=== PATIENT | male | born 1950 | race Caucasian/White ===

== ENCOUNTER → 2019-03-18 | Outpatient (CLI) | payer MEDICAID ==
[~2019-03-18] MED LIST: ALBU8.5H2 IH; ALPR.5T PO; ASP325TEC PO; ATOR40TA PO; CARV6.252 PO; CLOP75TA PO; CYCL10TA9 PO; FLAX100031 PO; GARL400T13 PO; ISN300T PO; LANS30CA PO; MULT1TAB12 PO; OMG1KC PO; PROAIR; vitamin B PO
--- NOTE | 2019-03-18 08:46 | Diagnostic Imaging Report ---
Clinical indication: Patient with cough. Exam: Chest x-ray PA and lateral views. Comparisons: None. Findings: There are slightly hyperinflated lungs, increased retrosternal clear space, and flattened hemidiaphragms which can be seen with COPD changes. There is mild airspace opacification of the right midlung field which is increased compared to the left side. There is also a small area of increased airspace involving the periphery of the left midlung field. There is curvilinear parenchymal bands in both upper lung field regions, likely representing scarring. There is no pleural effusion or pneumothorax. Pulmonary vasculature and cardiac silhouettes within normal limits. There are small spurs involving the thoracic spine. IMPRESSION: 1: There are mild increased airspace opacities in the midlung malagon bilaterally (right side more than the left). It is possible that these areas may represent infiltrates versus lung scarring. Comparison to prior x-rays would better evaluate. Follow up chest x-ray in 2 - 4 weeks is suggested to evaluate for interval resolution of this finding. 2: COPD lung changes. Dictated by: Dictated on workstation # [id number]
== END ==
LOC: RAD FS 08:12
PROVIDERS: ATTEND Family Medicine
DX: J44.9 Chronic obstructive pulmonary disease, unspecified (principal)
CPT/HCPCS: 71046

== ENCOUNTER 2019-04-05 14:07 | Outpatient (RCR) | payer MEDICAID ==
[2019-04-09] MEDS ORDERED: ALPR0.5T7 PO (13:26)
[2019-04-09] MEDS ORDERED: FLUT1BLS3 INH (13:26)
[2019-04-09] MEDS ORDERED: CYCL10TA9 PO (13:26)
[2019-04-09] MEDS ORDERED: CLOP75TA28 PO (13:26)
[2019-04-09] MEDS ORDERED: LISI10TA2 PO (13:26)
[2019-04-09] MEDS ORDERED: ASPI325T32 PO (13:26)
[2019-04-09] MEDS ORDERED: ATOR40TA70 PO (13:26)
[2019-04-09] MEDS ORDERED: NITR0.4T42 SL (13:26)
[2019-04-09] MEDS ORDERED: ALBU2.5V4 NEB (13:26)
[2019-04-09] MEDS ORDERED: CARV6.252 PO (13:26)
== END 2019-04-11 | disposition home or self-care (01) ==
LOC: PULM 14:07
PROVIDERS: ATTEND Nurse Practitioner
DX: J44.9 Chronic obstructive pulmonary disease, unspecified (principal)
CPT/HCPCS: 99211

== ENCOUNTER 2019-04-08 13:29 | Inpatient (IN) | payer MEDICAID ==
[~2019-04-08] VITALS: Ht 165.1 cm; Wt 55.9 kg
--- OUTSIDE RECORDS SUMMARY | 2019-04-08 13:35 | XMS REPORT | Continuity of Care Document ---
Author Organization Unknown Address Unknown Allergies Active Description Code Type Severity Reaction Onset Reported/Identified Relationship to Patient Clinical Status Yes No Known Drug Allergies [id number] Drug Allergy Unknown N/A 10/09/2011 Medications There is no data. Problems Date Dx Coded Attending Type Code Diagnosis Diagnosed By 03/22/2019 DAKOTA MCDANIEL, RENEA Shearer Ot J44.9 CHRONIC OBSTRUCTIVE PULMONARY DISEASE, U 03/31/2019 RENEA DUNCAN MD, Ot J44.9 CHRONIC OBSTRUCTIVE PULMONARY DISEASE, U 04/05/2019 RENEA DUNCAN MD, Ot J44.9 CHRONIC OBSTRUCTIVE PULMONARY DISEASE, U Procedures There is no data. Results Test Result Range LIPID PANEL - 02/23/19 10:30 CHOLESTEROL, TOTAL 104 mg/dL <200 HDL CHOLESTEROL 34 mg/dL >40 TRIGLYCERIDES 66 mg/dL <150 LDL-CHOLESTEROL 55 mg/dL (calc) NRG CHOL/HDLC RATIO 3.1 (calc) <5.0 NON HDL CHOLESTEROL 70 mg/dL (calc) <130 CMP - 02/23/19 10:30 GLUCOSE 106 mg/dL 65-99 UREA NITROGEN (BUN) 15 mg/dL 7-25 CREATININE 0.84 mg/dL 0.70-1.25 eGFR NON-AFR. KOSOVAN 91 mL/min/1.73m2 > OR=60 eGFR 105 mL/min/1.73m2 > OR=60 BUN/CREATININE RATIO NOT APPLICABLE (calc) 6-22 SODIUM 139 mmol/L 135-146 POTASSIUM 4.1 mmol/L 3.5-5.3 CHLORIDE 99 mmol/L 98-110 CARBON DIOXIDE 34 mmol/L 20-32 CALCIUM 9.5 mg/dL 8.6-10.3 PROTEIN, TOTAL 7.2 g/dL 6.1-8.1 ALBUMIN 4.2 g/dL 3.6-5.1 GLOBULIN 3.0 g/dL (calc) 1.9-3.7 ALBUMIN/GLOBULIN RATIO 1.4 (calc) 1.0-2.5 BILIRUBIN, TOTAL 1.1 mg/dL 0.2-1.2 ALKALINE PHOSPHATASE 91 U/L 40-115 AST 22 U/L 10-35 ALT 14 U/L 9-46 Encounters ACCT No. Visit Date/Time Discharge Status Pt. Type Provider Facility Loc./Unit Complaint [id number] 03/17/2019 13:45:00 03/17/2019 23:59:59 [facility] [id number] 02/23/2019 10:15:00 Document Registration [id number] 03/18/2019 08:12:00 03/18/2019 23:59:59 CLS Outpatient RENEA DUNCAN MD [facility] RAD FS R05 [id number] 04/08/2019 10:15:00 PEN Preadmit RENEA DUNCAN MD [facility] RAD SCREENING [id number] 04/05/2019 14:07:00 ACT Outpatient CARLEE LUCIANO APRN [facility] PULM COPD
[2019-04-08] MEDS ORDERED: NS IV 1000 ML 1,000 ML IV SCH (13:57)
[2019-04-08] MEDS ORDERED: RT-ALBUTEROL/IPRATROPIUM 3 ML (DUONEB) VIAL INH ONE (14:00)
[2019-04-08] MEDS ORDERED: cefTRIAXone FOR IV USE 1,000 MG in WATER (STERILE) FOR INJECTION 10 ML IV ONE (14:00)
[2019-04-08] MEDS ORDERED: ONDANSETRON 4 MG/2 ML (SDV) Z0FRAN IVP ONE (14:00)
[2019-04-08] MEDS ORDERED: AZITHROMYCIN INJECTION 500 MG in NS (IVPB) 250 ML IV ONE (14:00)
--- NOTE | 2019-04-08 14:02 | NUR ---
ABG drawn by GLO/JOE castro
--- NOTE | 2019-04-08 14:09 | ED Respiratory ---
General Stated Complaint: LOW O2 Source: patient, spouse Exam Limitations: no limitations History of Present Illness Date Seen by Provider: Apr 08, 2019 Time Seen by Provider: 13:49 Initial Comments Patient presents to ER by private conveyance from pulmonary rehabilitation with chief complaint of shortness of air and oxygen sats in the mid 80s on 2 L by na jimmie cannula. 2 months ago he was having progressively worsening shortness of breath COPD/emphysema and went to Dr. Duncan, quit smoking and was referred to a renderer at [facility] in [place], [place]. He started pulmonary rehabilitation this week because there was a waiting list and has just progressively been getting short of breath for the past several days with increased productive cough. No fevers chills he is having nausea without vomiting. No chest pain abdominal pain but is also having increased swelling in his feet for the past week or 2. No history of CHF but he does have peripheral vascular disease and 3 cardiac stents. He has bypass popliteal femoral grafts done by Dr. henson. He uses oxygen at 2 L at baseline but last night he said he was very constipated and having a hard time having a bowel movement and while straining became very short of breath had to turn his oxygen 5 L and rest for about an hour before he could catch his breath. He says at that time his oxygen sats were about 87-89%. He uses breathing treatments a couple times a day. He denies being particularly wheezy. He is a fairly good historian and knows his medications and says he takes them on a routine basis. This is Dr. Duncan's noticed some masses on x-ray recently has been working him up for possible lung cancer. Allergies and Home Medications Allergies Coded Allergies: No Known Drug Allergies (Unverified , 10/09/11) Home Medications Albuterol 8.5 Gm Hfa.aer.ad, 8.5 GM IH Q4H, (Reported) 2 PUFFS Alprazolam 0.5 Mg Tablet, 1 TAB PO BID, (Reported) Aspirin 325 Mg Tabec, 325 MG PO DAILY, (Reported) Atorvastatin Calcium 40 Mg Tablet, 1 EACH PO DAILY, (Reported) Carvedilol 6.25 Mg Tablet, 1 EACH PO BID, (Reported) Clopidogrel Bisulfate 75 Mg Tablet, 1 EACH PO DAILY, (Reported) Cyclobenzaprine Hcl 10 Mg Tablet, 1 EACH PO Q8HR PRN, (Reported) Flaxseed Oil 1,000 Mg Capsule, 1,000 MG PO DAILY, (Reported) Garlic 400 Mg Tablet.dr, 400 MG PO DAILY, (Reported) Isoniazid 300 Mg Tablet, 1 EACH PO DAILY, (Reported) Lansoprazole 30 Mg Capsule.dr, 30 MG PO DAILY, (Reported) Multivitamins W-Minerals 1 Each Tablet, 1 EACH PO DAILY, (Reported) [place] 3 Polyunsat Fatty Acids 1,000 Mg Cap, 1,000 MG PO DAILY, (Reported) [Proair] , PRN, (Reported) [vitamin B] , PO DAILY, (Reported) Patient Home Medication List Home Medication List Reviewed: Yes Review of Systems Review of Systems Constitutional: No chills, No diaphoresis; malaise, weakness EENTM: No ear discharge, No hearing loss Respiratory: cough; No orthopnea; phlegm, short of breath; No wheezing Cardiovascular: No chest pain; Hx of Intervention; No palpitations; vascular heart diseas Gastrointestinal: No abdominal pain; constipation; No diarrhea, No dysphagia; nausea; No vomiting Genitourinary: No discharge, No dysuria Musculoskeletal: No back pain, No joint pain Skin: No pruritus, No rash Past Becjqcq-Schjzb-Xgyzoy Hx Patient Social History Alcohol Use: Denies Use Recreational Drug Use: No Drug of Choice: Hx MJ Smoking Status: Former Smoker Type Used: Cigarettes Former Smoker, Quit: Jan 25, 2019 Physical Exam Vital Signs - First Documented 04/08/19 04/08/19 13:42 14:00 Temp 99.4 Pulse 102 Resp 20 B/P (MAP) 163/105 (124) Pulse Ox 84 O2 Delivery Nasal Cannula O2 Flow Rate 2.00 FiO2 92 Capillary Refill : Height: '" Weight: lbs. oz. kg; BMI Method: General Appearance: WD/WN, mild distress Eyes: Bilateral Eye Normal Inspection, Bilateral Eye PERRL, Bilateral Eye EOMI HEENT: PERRL/EOMI; No pharynx normal (oropharynx is very dry) Neck: full range of motion, normal inspection Respiratory: respiratory distress (mild), decreased breath sounds, accessory muscle use (mild to moderate), wheezing Cardiovascular: normal peripheral pulses, regular rate, rhythm, no JVD, no murmur, other (1+ pitting edema at the ankles) Extremities: non-tender, normal capillary refill Neurologic/Psychiatric: alert, normal mood/affect, oriented x 3 Skin: normal color, warm/dry Focused Exam Lactate Level 04/08/19 14:00: Lactic Acid Level 1.46 Lactic Acid Level Laboratory Tests Test 04/08/19 14:00 Lactic Acid Level 1.46 MMOL/L (0.50-2.00) Progress/Results/Core Measures Suspected Sepsis SIRS Temperature: Pulse: Respiratory Rate: Laboratory Tests 04/08/19 14:00: White Blood Count 11.2H Blood Pressure / Mean: 04/08/19 14:00: Lactic Acid Level 1.46 Laboratory Tests 04/08/19 14:00: Creatinine 0.69, INR Comment 1.0, Platelet Count 234, Total Bilirubin 1.2H Results/Orders Lab Results Laboratory Tests Test 04/08/19 14:00 04/08/19 14:02 Range/Units White Blood Count 11.2 H 4.3-11.0 10^3/uL Red Blood Count 4.59 4.35-5.85 10^6/uL Hemoglobin 14.8 13.3-17.7 G/DL Hematocrit 48 40-54 % Mean Corpuscular Volume 104 H 80-99 FL Mean Corpuscular Hemoglobin 32 25-34 PG Mean Corpuscular Hemoglobin Concent 31 L 32-36 G/DL Red Cell Distribution Width 14.6 H 10.0-14.5 % Platelet Count 234 130-400 10^3/uL Mean Platelet Volume 10.9 H 7.4-10.4 FL Neutrophils (%) (Auto) 76 H 42-75 % Lymphocytes (%) (Auto) 12 12-44 % Monocytes (%) (Auto) 10 0-12 % Eosinophils (%) (Auto) 1 0-10 % Basophils (%) (Auto) 1 0-10 % Neutrophils # (Auto) 8.5 H 1.8-7.8 X 10^3 Lymphocytes # (Auto) 1.4 1.0-4.0 X 10^3 Monocytes # (Auto) 1.1 H 0.0-1.0 X 10^3 Eosinophils # (Auto) 0.1 0.0-0.3 10^3/uL Basophils # (Auto) 0.1 0.0-0.1 10^3/uL Prothrombin Time 13.7 12.2-14.7 SEC INR Comment 1.0 0.8-1.4 Activated Partial Thromboplast Time 27 24-35 SEC D-Dimer 1.80 H 0.00-0.49 UG/ML Sodium Level 141 135-145 MMOL/L Potassium Level 4.6 3.6-5.0 MMOL/L Chloride Level 94 L 98-107 MMOL/L Carbon Dioxide Level 42 H 21-32 MMOL/L Anion Gap 5 5-14 MMOL/L Blood Urea Nitrogen 17 7-18 MG/DL Creatinine 0.69 0.60-1.30 MG/DL Estimat Glomerular Filtration Rate > 60 BUN/Creatinine Ratio 25 Glucose Level 158 H 70-105 MG/DL Lactic Acid Level 1.46 0.50-2.00 MMOL/L Calcium Level 9.4 8.5-10.1 MG/DL Corrected Calcium 9.8 8.5-10.1 MG/DL Total Bilirubin 1.2 H 0.1-1.0 MG/DL Aspartate Amino Transf (AST/SGOT) 24 5-34 U/L Alanine Aminotransferase (ALT/SGPT) 25 0-55 U/L Alkaline Phosphatase 91 40-136 U/L Pro-B-Type Natriuretic Peptide 4113.0 H <75.0 PG/ML Total Protein 7.6 6.4-8.2 GM/DL Albumin 3.5 3.2-4.5 GM/DL Blood Gas Puncture Site L RADIAL Blood Gas Patient Temperature 99.4 Arterial Blood pH 7.40 7.37-7.43 Arterial Blood Partial Pressure CO2 75 *H 35-45 MMHG Arterial Blood Partial Pressure O2 66 L 79-93 MMHG Arterial Blood HCO3 47 *H 23-27 MMOL/L Arterial Blood Total CO2 49.0 H 21.0-31.0 MMOL/L Arterial Blood Oxygen Saturation 93 L 94-100 % Arterial Blood Base Excess 17.9 H -2.5-2.5 MMOL/L Charles Test YES-POS Blood Gas Ventilator Setting NO Blood Gas Inspired Oxygen 3 L My Orders Orders - ANITHA JEFFREY Cbc With Automated Diff (04/08/19 13:57) Comprehensive Metabolic Panel (04/08/19 13:57) Blood Culture (04/08/19 13:57) Sputum Culture (04/08/19 13:57) Urinalysis (04/08/19 13:57) Urine Culture (04/08/19 13:57) Protime With Inr (04/08/19 13:57) Partial Thromboplastin Time (04/08/19 13:57) Ed Iv/Invasive Line Start (04/08/19 13:57) Ed Iv/Invasive Line Start (04/08/19 13:57) Vital Signs Adult Sepsis Patie Q15M (04/08/19 13:57) O2 (04/08/19 13:57) Remove Rings In Anticipation O (04/08/19 13:57) Lactic Acid Analyzer (04/08/19 13:57) Ns Iv 1000 Ml (Sodium Chloride 0.9%) (04/08/19 13:57) Ceftriaxone For Iv Use (Rocephin For I (04/08/19 14:00) Azithromycin Injection (Zithromax Inject (04/08/19 14:00) Ed Iv/Invasive Line Start (04/08/19 13:57) Probnp Fs (04/08/19 13:57) Ondansetron Injection (Zofran Injectio (04/08/19 14:00) Albuterol/Ipra Inhalation Soln (Duoneb I (04/08/19 14:00) Svn Small Volume Nebulizer (04/08/19 13:57) Fibrin Degradation Products (04/08/19 14:09) Arterial Blood Gas (04/08/19 14:15) Chest Pa/Lat (2 View) (04/08/19 14:25) Furosemide Injection (Lasix Injection) (04/08/19 15:00) Methylprednisolone Sod Succ (Solu-Medrol (04/08/19 15:00) Medications Given in ED Current Medications Medications Dose Ordered Sig/Kaycee Route Start Time Stop Time Status Last Admin Dose Admin Albuterol/ Ipratropium 3 ml ONCE ONCE INH 04/08/19 14:00 04/08/19 14:02 DC 04/08/19 14:11 3 ML Azithromycin 500 mg/Sodium Chloride 250 ml @ 250 mls/hr ONCE ONCE IV 04/08/19 14:00 04/08/19 14:59 DC 04/08/19 15:07 250 MLS/HR Ceftriaxone Sodium 1000 mg/ Sterile Water 10 ml @ 200 mls/hr ONCE ONCE IV 04/08/19 14:00 04/08/19 14:02 DC 6/27/19 15:07 200 MLS/HR Furosemide 40 mg ONCE ONCE IVP 04/08/19 15:00 04/08/19 15:01 DC 04/08/19 15:10 40 MG Methylprednisolone Sodium Succinate 125 mg ONCE ONCE IVP 04/08/19 15:00 04/08/19 15:01 DC 04/08/19 15:10 125 MG Ondansetron HCl 4 mg ONCE ONCE IVP 04/08/19 14:00 04/08/19 14:02 DC 04/08/19 14:11 4 MG Vital Signs/I&O 04/08/19 04/08/19 04/08/19 13:42 14:00 14:11 Temp 99.4 Pulse 102 Resp 20 B/P (MAP) 163/105 (124) Pulse Ox 84 93 O2 Delivery Nasal Cannula Nasal Cannula Nasal Cannula O2 Flow Rate 2.00 3.00 3.00 FiO2 92 Capillary Refill : Progress Note #1: Time: 14:06 Progress Note We have increased his oxygen to 4 L by nasal cannula to bring him up to 90-92%. We will give her a DuoNeb and obtain a 2 view chest x-ray if he can tolerate it. Septic workup. He meets Sirs criteria with a heart rate in the 90s and respiratory rate around 30. It's possible he has a postobstructive pneumonia but is also possible he has a pulmonary embolism given his recent sedentary nature due to breathlessness and possible history of malignancy. No evidence of DVT. With his swelling of his feet he could also be having an acute exacerbation of heart failure so we will cautiously give a liter fluids and check a BNP, d-dimer and if positive we will get a CT angiogram. He was post to have a CT scan of his chest today to evaluate the findings on x-ray however the CT scanner was broken so radiology called and rescheduled with him. Progress Note #2: Time: 14:37 Progress Note After the DuoNeb the patient now is breathing 96-99% on 4 L per nasal cannula. He feels a little better. Wheezes are no longer auscultated. White cell count is not markedly elevated. COPD certainly seems to be a large component of this but there still could be a pneumonia. Progress Note #3: Time: 15:58 Progress Note The patient's not having any chest pain at any point and his breathing significantly improved with a DuoNeb so this would make a pulmonary embolism far less likely. Her going to pursue this and use steroids and Lasix. Diagnostic Imaging Diagonstic Imaging: Xray Plain Films/CT/US/NM/MRI: chest (2 view) Comments NAME: [facility] REC#: [id number] PT STATUS: REG ER : 1950 PHYSICIAN: ANITHA JEFFREY MD ADMIT DATE: 04/08/19/ER FS Draft Date of Exam:04/08/19 CHEST PA/LAT (2 VIEW) INDICATION: Low oxygen saturation. TIME OF EXAM: 2:23 p.m. COMPARISON: Correlation is made with prior study of 03/18/2019. FINDINGS: Heart size is stable. Linear parenchymal density in the right suprahilar region appears stable and may represent scarring. Minimal patchy airspace disease in the right midlung is unchanged. Left lung is stable and appears to be essentially clear. The lungs are hyperinflated. There is no effusion. No pneumothorax is seen. IMPRESSION: Overall, similar appearance of the chest when compared with examination from 03/18/2019. Dictated on workstation # [id number] Dict: 04/08/19 1452 Trans: 04/08/19 1502 [id number] Interpreted by: AALIYAH TENA MD Electronically signed by: Reviewed: Reviewed by Me Departure Communication (Admissions) Time/Spoke to Admitting Phy: 15:45 Discussed the case lab imaging EKG with Dr. Ren she agrees to admit the patient on steroids and Lasix. Impression Primary Impression: Acute exacerbation of CHF (congestive heart failure) Qualified Codes: I50.9 - Heart failure, unspecified Additional Impression: COPD with exacerbation Disposition: ADMITTED INPATIENT Condition: Stable Admissions Decision to Admit Reason: Admit from ER (General) Decision to Admit/Date: Apr 08, 2019 Time/Decision to Admit Time: 15:30 Departure-Patient Inst. Referrals: RENEA DUNCAN MD (PCP/Family) Primary Care Physician ANITHA JEFFREY Apr 08, 2019 14:09
[2019-04-08 14:21] LABS: HEMATOCRIT 48 % (40-54); HEMOGLOBIN 14.8 G/DL (13.3-17.7); MEAN CORPUSCULAR HEMOGLOBIN 32 PG (25-34); MEAN CORPUSCULAR HGB CONC 31 G/DL (32-36); MEAN CORPUSCULAR VOLUME 104 FL (80-99); RED CELL DISTRIBUTION WIDTH 14.6 % (10.0-14.5); WHITE BLOOD COUNT 11.2 10^3/uL (4.3-11.0)
[2019-04-08 14:22] LABS: BASOPHILS # (AUTO) 0.1 10^3/uL (0.0-0.1); BASOPHILS % (AUTO) 1 % (0-10); EOSINOPHILS # (AUTO) 0.1 10^3/uL (0.0-0.3); EOSINOPHILS % (AUTO) 1 % (0-10); LYMPHOCYTES # (AUTO) 1.4 X 10^3 (1.0-4.0); LYMPHOCYTES % (AUTO) 12 % (12-44); MEAN PLATELET VOLUME 10.9 FL (7.4-10.4); MONOCYTES # (AUTO) 1.1 X 10^3 (0.0-1.0); MONOCYTES % (AUTO) 10 % (0-12); NEUTROPHILS # (AUTO) 8.5 X 10^3 (1.8-7.8); NEUTROPHILS % (AUTO) 76 % (42-75); PLATELET COUNT 234 10^3/uL (130-400)
[2019-04-08 14:43] LABS: BILIRUBIN,TOTAL 1.2 MG/DL (0.1-1.0); BUN/CREATININE RATIO 25; CALCIUM 9.4 MG/DL (8.5-10.1); CARBON DIOXIDE 42 MMOL/L (21-32); CHLORIDE 94 MMOL/L (98-107); CREATININE SERUM 0.69 MG/DL (0.60-1.30); GFR ESTIMATED > 60; GLUCOSE 158 MG/DL (70-105); POTASSIUM 4.6 MMOL/L (3.6-5.0); SODIUM 141 MMOL/L (135-145)
[2019-04-08 14:44] LABS: ALANINE AMINOTRANSFERASE 25 U/L (0-55); ALBUMIN 3.5 GM/DL (3.2-4.5); ALKALINE PHOSPHATASE 91 U/L (40-136); TOTAL PROTEIN 7.6 GM/DL (6.4-8.2)
[2019-04-08 14:48] LABS: ABG BASE EXCESS 17.9 MMOL/L (-2.5-2.5); ABG OXYGEN SATURATION 93 % (94-100); ALLENS TEST YES-POS
[2019-04-08 14:49] LABS: INSPIRED O2 3 L; PATIENT TEMP 99.4; VENTILATOR NO
[2019-04-08 14:51] LABS: ABG PCO2 75 MMHG (35-45)
[2019-04-08 14:52] LABS: ABG PO2 66 MMHG (79-93)
[2019-04-08] MEDS ORDERED: methylPREDNISolone 125 MG (Solu-MEDROL) VIAL IVP ONE (15:00)
[2019-04-08] MEDS ORDERED: FUROSEMIDE 40 MG/4 ML INJ (LASIX) IVP ONE (15:00)
--- NOTE | 2019-04-08 15:02 | Diagnostic Imaging Report ---
INDICATION: Low oxygen saturation. TIME OF EXAM: 2:23 p.m. COMPARISON: Correlation is made with prior study of 03/18/2019. FINDINGS: Heart size is stable. Linear parenchymal density in the right suprahilar region appears stable and may represent scarring. Minimal patchy airspace disease in the right midlung is unchanged. Left lung is stable and appears to be essentially clear. The lungs are hyperinflated. There is no effusion. No pneumothorax is seen. IMPRESSION: Overall, similar appearance of the chest when compared with examination from 03/18/2019. Dictated by: Dictated on workstation # [id number]
--- NOTE | 2019-04-08 15:39 | NUR ---
Notified from [facility] of room is not clean and will need to be delay transfer.
[2019-04-08 15:45] LABS: PROTHROMBIN TIME PATIENT 13.7 SEC (12.2-14.7)
[2019-04-08 15:46] LABS: FIBRIN DEGRADATION PRODUCTS 1.8 UG/ML (0.00-0.49)
[2019-04-08] MEDS ORDERED: ACETAMINOPHEN 500 MG TAB (TYLENOL) PO ONE (16:15)
[2019-04-08] MEDS ORDERED: CYCLOBENZAPRINE 10 MG (FLEXERIL) TAB PO ONE (16:15)
--- NOTE | 2019-04-08 16:17 | NUR ---
Pt report called to Janine DIAZ. Was reported that rooms are not ready on 4th floor and are stat clean in process. They will want to call us when room ready.
[2019-04-08 16:20] LABS: BILIRUBIN,URINE NEGATIVE (NEGATIVE); CLARITY,URINE CLEAR; COLOR,URINE DARK YELLOW; GLUCOSE, URINE (UA) NEGATIVE (NEGATIVE); KETONES,URINE NEGATIVE (NEGATIVE); LEUKOCYTE ESTERASE ,URINE NEGATIVE (NEGATIVE); NITRITE,URINE NEGATIVE (NEGATIVE); PROTEIN,URINE 2+ (NEGATIVE)
--- NOTE | 2019-04-08 16:23 | NUR ---
REPORT TAKEN JOE PRINGLE FROM ED AT THIS TIME.
[2019-04-08 16:25] LABS: BACTERIA,URINE NEGATIVE /HPF
[2019-04-08 16:26] LABS: SQUAMOUS EPITHELIAL CELL,UR 0-2 /HPF
--- NOTE | 2019-04-08 16:33 | NUR ---
Call to [facility] Dispatch to request transfer to [place] [facility]. Report of last EMS transport not back into [facility].
--- NOTE | 2019-04-08 16:35 | NUR ---
Lolly DIAZ called to [facility] to ask about room readiness/delay.
--- NOTE | 2019-04-08 16:55 | NUR ---
Pt departing to [facility] to ED Rm [id number], pt stable. See transfer form.
--- OUTSIDE RECORDS SUMMARY | 2019-04-08 17:41 | XMS REPORT | Continuity of Care Document ---
Author Organization Unknown Address Unknown Allergies Active Description Code Type Severity Reaction Onset Reported/Identified Relationship to Patient Clinical Status Yes No Known Drug Allergies [id number] Drug Allergy Unknown N/A 10/09/2011 Medications There [...] 7-25 CREATININE 0.84 mg/dL 0.70-1.25 eGFR NON-AFR. CITIZEN OF [place] 91 mL/min/1.73m2 > OR=60 eGFR 105 mL/min/1.73m2 [...] 22 U/L 10-35 ALT 14 U/L 9-46 Complete blood count (CBC) with automated white blood cell (WBC) differential - 04/08/19 14:00 Blood leukocytes automated count (number/volume) 11.2 10*3/uL 4.3-11.0 Blood erythrocytes automated count (number/volume) 4.59 10*6/uL 4.35-5.85 Venous blood hemoglobin measurement (mass/volume) 14.8 g/dL 13.3-17.7 Blood hematocrit (volume fraction) 48 % 40-54 Automated erythrocyte mean corpuscular volume 104 [foz_us] 80-99 Automated erythrocyte mean corpuscular hemoglobin (mass per erythrocyte) 32 pg 25-34 Automated erythrocyte mean corpuscular hemoglobin concentration measurement (mass/volume) 31 g/dL 32-36 Automated erythrocyte distribution width ratio 14.6 % 10.0- 14.5 Automated blood platelet count (count/volume) 234 10*3/uL 130-400 Automated blood platelet mean volume measurement 10.9 [foz_us] 7.4-10.4 Automated blood neutrophils/100 leukocytes 76 % 42-75 Automated blood lymphocytes/100 leukocytes 12 % 12-44 Blood monocytes/100 leukocytes 10 % 0-12 Automated blood eosinophils/100 leukocytes 1 % 0-10 Automated blood basophils/100 leukocytes 1 % 0-10 Blood neutrophils automated count (number/volume) 8.5 10*3 1.8-7.8 Blood lymphocytes automated count (number/volume) 1.4 10*3 1.0-4.0 Blood monocytes automated count (number/volume) 1.1 10*3 0.0- 1.0 Automated eosinophil count 0.1 10*3/uL 0.0-0.3 Automated blood basophil count (count/volume) 0.1 10*3/uL 0.0-0.1 Blood lactic acid measurement (moles/volume) - 04/08/19 14:00 Blood lactic acid measurement (moles/volume) 1.46 mmol/L 0.50- 2.00 Comprehensive metabolic panel - 04/08/19 14:00 Serum or plasma sodium measurement (moles/volume) 141 mmol/L 135-145 Serum or plasma potassium measurement (moles/volume) 4.6 mmol/L 3.6-5.0 Serum or plasma chloride measurement (moles/volume) 94 mmol/L 98-107 Carbon dioxide 42 mmol/L 21-32 Serum or plasma anion gap determination (moles/volume) 5 mmol/L 5-14 Serum or plasma urea nitrogen measurement (mass/volume) 17 mg/dL 7-18 Serum or plasma creatinine measurement (mass/volume) 0.69 mg/dL 0.60-1.30 Serum or plasma urea nitrogen/creatinine mass ratio 25 NRG Serum or plasma creatinine measurement with calculation of estimated glomerular filtration rate > NRG Serum or plasma glucose measurement (mass/volume) 158 mg/dL 70-105 Serum or plasma calcium measurement (mass/volume) 9.4 mg/dL 8.5-10.1 Serum or plasma total bilirubin measurement (mass/volume) 1.2 mg/dL 0.1-1.0 Serum or plasma alkaline phosphatase measurement (enzymatic activity/volume) 91 U/L 40-136 Serum or plasma aspartate aminotransferase measurement (enzymatic activity/volume) 24 U/L 5-34 Serum or plasma alanine aminotransferase measurement (enzymatic activity/volume) 25 U/L 0-55 Serum or plasma protein measurement (mass/volume) 7.6 g/dL 6.4-8.2 Serum or plasma albumin measurement (mass/volume) 3.5 g/dL 3.2-4.5 CALCIUM CORRECTED 9.8 mg/dL 8.5-10.1 PROBNP FS - 04/08/19 14:00 PROBNP FS 4113.0 pg/mL <75.0 PT panel in platelet poor plasma by coagulation assay - 04/08/19 14:00 Prothrombin time (PT) in platelet poor plasma by coagulation assay 13.7 s 12.2-14.7 INR in platelet poor plasma or blood by coagulation assay 1.0 0.8-1.4 Activated partial thromboplastin time (aPTT) in platelet poor plasma bycoagulation assay - 04/08/19 14:00 Activated partial thromboplastin time (aPTT) in platelet poor plasma bycoagulation assay 27 s 24-35 Fibrin D-dimer FEU measurement in platelet poor plasma (mass/volume) - 04/08/19 14:00 Fibrin D-dimer FEU measurement in platelet poor plasma (mass/volume) 1.80 ug/mL 0.00-0.49 Arterial blood gas measurement - 04/08/19 14:02 Blood pCO2 75 mm[Hg] 35-45 Blood pO2 66 mm[Hg] 79-93 Arterial blood bicarbonate measurement (moles/volume) 47 mmol/L 23-27 Arterial blood base excess by calculation 17.9 mmol/L -2.5-2.5 Arterial blood oxygen saturation measurement 93 % 94-100 * Inhaled oxygen flow rate 3 L NRG Arterial blood pH measurement with patient temperature correction 7.40 7.37-7.43 Arterial blood carbon dioxide, total measurement (moles/volume) 49.0 mmol/L 21.0-31.0 Body site L RADIAL NRG Assessment of wrist artery patency prior to arterial puncture YES-POS NRG Setting of ventilation mode NO NRG Measurement of body temperature 99.4 NRG Complete urinalysis with reflex to culture - 04/08/19 16:06 Urine color determination DARK YELLOW NRG Urine clarity determination CLEAR NRG Urine pH measurement by test strip 6.0 5-9 Specific gravity of urine by test strip >= 1.016-1.022 Urine protein assay by test strip, semi-quantitative 2+ NEGATIVE Urine glucose detection by automated test strip NEGATIVE NEGATIVE Erythrocytes detection in urine sediment by light microscopy TRACE NEGATIVE Urine ketones detection by automated test strip NEGATIVE NEGATIVE Urine nitrite detection by test strip NEGATIVE NEGATIVE Urine total bilirubin detection by test strip NEGATIVE NEGATIVE Urine urobilinogen measurement by automated test strip (mass/volume) 2.0 mg/dL NORMAL Urine leukocyte esterase detection by dipstick NEGATIVE NEGATIVE Automated urine sediment erythrocyte count by microscopy (number/high power field) [HPF] NRG Automated urine sediment leukocyte count by microscopy (number/high power field) [HPF] NRG Bacteria detection in urine sediment by light microscopy NEGATIVE NRG Squamous epithelial cells detection in urine sediment by light microscopy 0-2 NRG Crystals detection in urine sediment by light microscopy NONE NRG Casts detection in urine sediment by light microscopy PRESENT NRG Mucus detection in urine sediment by light microscopy LARGE NRG Complete urinalysis with reflex to culture CULTURE PENDING NRG Hyaline casts detection in urine sediment by light microscopy 10-25 NRG Encounters ACCT No. Visit Date/Time Discharge Status Pt. Type Provider Facility Loc./Unit Complaint [id number] 03/17/2019 13:45:00 03/17/2019 23:59:59 [facility] [id number] 02/23/2019 10:15:00 Document Registration [id number] 03/18/2019 08:12:00 03/18/2019 23:59:59 CLS Outpatient RENEA DUNCAN MD [facility] RAD FS R05 [id number] 04/08/2019 14:23:00 Document Registration [id number] 04/08/2019 10:15:00 PEN Preadmit RENEA DUNCAN MD [facility] RAD SCREENING [id number] 04/05/2019 14:07:00 ACT Outpatient CARLEE LUCIANO APRN [facility] PULM COPD
[2019-04-08 17:53] VITALS: BP 93/75
[2019-04-08] MEDS ORDERED: CATHETER FLUSH 10 ML SYR IV PRN (18:15)
[2019-04-08] MEDS ORDERED: CYCLOBENZAPRINE 10 MG (FLEXERIL) TAB PO PRN (18:15)
[2019-04-08] MEDS ORDERED: FUROSEMIDE 40 MG/4 ML INJ (LASIX) IV SCH (18:30)
[2019-04-08 19:40] VITALS: BP 101/70
[2019-04-08] MEDS: RT-ALBUTEROL/IPRATROPIUM 3 ML (DUONEB) VIAL INH SCH (20:00)
[2019-04-08] MEDS: FUROSEMIDE 40 MG/4 ML INJ (LASIX) IV SCH (20:13)
[2019-04-08] MEDS: CATHETER FLUSH 10 ML SYR IV SCH (20:13)
[2019-04-08] MEDS: ATORVASTATIN 40 MG (LIPITOR) TABLET PO SCH (20:13)
[2019-04-08] MEDS: CARVEDILOL 6.25 MG (COREG) TAB PO SCH (20:13)
[2019-04-08] MEDS ORDERED: RT-ALBUTEROL/IPRATROPIUM 3 ML (DUONEB) VIAL INH PRN (20:15)
[2019-04-09] VITALS (7 sets, daily range): BP systolic 93–132; BP diastolic 72–89
[2019-04-09] MEDS: RT-ALBUTEROL/IPRATROPIUM 3 ML (DUONEB) VIAL INH SCH ×7 (00:28→22:24)
[2019-04-09] MEDS: predniSONE 20 MG TAB PO SCH (06:01)
[2019-04-09] MEDS: FUROSEMIDE 40 MG/4 ML INJ (LASIX) IV SCH (06:01)
[2019-04-09] MEDS: CATHETER FLUSH 10 ML SYR IV SCH ×3 (06:01→20:03)
[2019-04-09 06:53] LABS: BASOPHILS % (AUTO) 0 % (0-10); EOSINOPHILS % (AUTO) 0 % (0-10); HEMATOCRIT 40 % (40-54); HEMOGLOBIN 13.1 G/DL (13.3-17.7); LYMPHOCYTES # (AUTO) 0.7 X 10^3 (1.0-4.0); LYMPHOCYTES % (AUTO) 7 % (12-44); MEAN CORPUSCULAR HEMOGLOBIN 33 PG (25-34); MEAN CORPUSCULAR HGB CONC 32 G/DL (32-36); MEAN CORPUSCULAR VOLUME 102 FL (80-99); MEAN PLATELET VOLUME 10.9 FL (7.4-10.4); MONOCYTES # (AUTO) 0.8 X 10^3 (0.0-1.0); MONOCYTES % (AUTO) 7 % (0-12); NEUTROPHILS # (AUTO) 9.6 X 10^3 (1.8-7.8); NEUTROPHILS % (AUTO) 86 % (42-75); PLATELET COUNT 208 10^3/uL (130-400); RED CELL DISTRIBUTION WIDTH 14.4 % (10.0-14.5); WHITE BLOOD COUNT 11.1 10^3/uL (4.3-11.0)
[2019-04-09 07:10] LABS: ALANINE AMINOTRANSFERASE 35 U/L (0-55); ALBUMIN 3.1 GM/DL (3.2-4.5); ALKALINE PHOSPHATASE 90 U/L (40-136); BILIRUBIN,TOTAL 0.5 MG/DL (0.1-1.0); BUN/CREATININE RATIO 24; CALCIUM 9.5 MG/DL (8.5-10.1); CARBON DIOXIDE 39 MMOL/L (21-32); CHLORIDE 92 MMOL/L (98-107); CREATININE SERUM 0.86 MG/DL (0.60-1.30); GFR ESTIMATED > 60; GLUCOSE 143 MG/DL (70-105); POTASSIUM 4.8 MMOL/L (3.6-5.0); SODIUM 140 MMOL/L (135-145); TOTAL PROTEIN 6.5 GM/DL (6.4-8.2)
[2019-04-09] MEDS: CARVEDILOL 6.25 MG (COREG) TAB PO SCH ×2 (08:17→20:03)
[2019-04-09] MEDS: ASPIRIN 325 MG (5 GR) TABLET PO SCH (08:17)
[2019-04-09] MEDS ORDERED: CLOPIDOGREL 75 MG (PLAVIX) TABLET PO SCH (09:00)
[2019-04-09 09:56] LABS: ABG BASE EXCESS 16.6 MMOL/L (-2.5-2.5); ABG OXYGEN SATURATION 92 % (94-100); ABG PH 7.36 (7.37-7.43); ABG PO2 59 MMHG (79-93); ABG TCO2 45.5 MMOL/L (21.0-31.0)
[2019-04-09 10:02] LABS: ABG PCO2 77 MMHG (35-45); ALLENS TEST YES-POS; INSPIRED O2 4L; PATIENT TEMP 97.1; VENTILATOR NO
--- NOTE | 2019-04-09 10:34 | Diagnostic Imaging Report ---
Indication: Respiratory distress. PA and lateral chest There are emphysematous changes in the lungs with air trapping. There are no consolidating infiltrates. There are no effusions or pneumothoraces. Impression: Severe COPD. No acute abnormalities. No change compared to previous day. Dictated by: Dictated on workstation # [id number]
--- NOTE | 2019-04-09 10:46 | History & Physicial (CHS) ---
HPI History of Present Illness: 69 yo male came to ER due to what he describes as recommendation from pulmonary rehab to go to ER to get steroids due to his mucous/phlegm that is difficult to cough up. He states he was not feeling poorly but had thick sputum that is like a ball that gags him when he tries to get it out once a day or so. He denies fe chinyere, chest pain or illness recently. He started on home O2 about 2 months ago, has had emphysema for 20 years and been on inhalers intermodal owner operator truck driver. He also notes swelling in his legs but admits he was not taking his lasix. Source: patient Date seen by provider: Apr 09, 2019 Time Seen by Provider: 10:43 Attending Physician Russ Ren MD PCP Chayo Sims MD Consult Date of Admission Apr 08, 2019 at 15:00 Home Medications Home Medications Reviewed patient Home Medication Reconciliation performed by pharmacy medication reconciliations pharmacy technician assistant and/or nursing. Patients Allergies have been reviewed. Allergies Coded Allergies: propoxyphene (Unverified Adverse Reaction, Unknown, 04/08/19) BST-[id number]-Emmhth Hx Patient Social History Alcohol Use: Denies Use Recreational Drug Use: No Drug of Choice: Hx MJ Smoking Status: Former Smoker Type Used: Cigarettes Recent Foreign Travel: No Contact w/other who traveled: No Recent Hopitalizations: No Recent Infectious Disease Expo: No Immunizations Up To Date Tetanus Booster (TDap): Unknown Date of Pneumonia Vaccine: Apr 08, 2015 Past Medical History PMHx Emphysema Coronary artery disease with stenting Peripheral artery disease with stenting SurgHx: Coronary artery stents Bilateral peripheral artery stenting Family Medical History Family History: Alcoholism 19 FATHER G8 BROTHER G8 BROTHER Arthritis 19 FATHER 19 MOTHER Cardiovascular disease 19 MOTHER G8 BROTHER Hypertension G8 BROTHER Myocardial infarction 19 MOTHER G8 BROTHER Respiratory disorder 19 FATHER G8 BROTHER Tuberculosis 19 FATHER G8 BROTHER Review of Systems (CHC) Constitutional: No fever EENTM: No nose congestion Respiratory: cough, short of breath Cardiovascular: No chest pain; edema Gastrointestinal: No abdominal pain; constipation (for about a year); No diarrhea; nausea; No vomiting Genitourinary: No dysuria Musculoskeletal: joint pain Psychiatric/Neurological: Anxiety Reviewed Test Results Reviewed Test Results Lab Laboratory Tests Test 04/08/19 14:00 04/08/19 14:02 04/08/19 16:06 04/09/19 05:51 Range/Units White Blood Count 11.2 H 11.1 H 4.3-11.0 10^3/uL Red Blood Count 4.59 3.97 L 4.35-5.85 10^6/uL Hemoglobin 14.8 13.1 L 13.3-17.7 G/DL Hematocrit 48 40 40-54 % Mean Corpuscular Volume 104 H 102 H 80-99 FL Mean Corpuscular Hemoglobin 32 33 25-34 PG Mean Corpuscular Hemoglobin Concent 31 L 32 32-36 G/DL Red Cell Distribution Width 14.6 H 14.4 10.0-14.5 % Platelet Count 234 208 130-400 10^3/uL Mean Platelet Volume 10.9 H 10.9 H 7.4-10.4 FL Neutrophils (%) (Auto) 76 H 86 H 42-75 % Lymphocytes (%) (Auto) 12 7 L 12-44 % Monocytes (%) (Auto) 10 7 0-12 % Eosinophils (%) (Auto) 1 0 0-10 % Basophils (%) (Auto) 1 0 0-10 % Neutrophils # (Auto) 8.5 H 9.6 H 1.8-7.8 X 10^3 Lymphocytes # (Auto) 1.4 0.7 L 1.0-4.0 X 10^3 Monocytes # (Auto) 1.1 H 0.8 0.0-1.0 X 10^3 Eosinophils # (Auto) 0.1 0.0 0.0-0.3 10^3/uL Basophils # (Auto) 0.1 0.0 0.0-0.1 10^3/uL Prothrombin Time 13.7 12.2-14.7 SEC INR Comment 1.0 0.8-1.4 Activated Partial Thromboplast Time 27 24-35 SEC D-Dimer 1.80 H 0.00-0.49 UG/ML Sodium Level 141 140 135-145 MMOL/L Potassium Level 4.6 4.8 3.6-5.0 MMOL/L Chloride Level 94 L 92 L 98-107 MMOL/L Carbon Dioxide Level 42 H 39 H 21-32 MMOL/L Anion Gap 5 9 5-14 MMOL/L Blood Urea Nitrogen 17 21 H 7-18 MG/DL Creatinine 0.69 0.86 0.60-1.30 MG/DL Estimat Glomerular Filtration Rate > 60 > 60 BUN/Creatinine Ratio 25 24 Glucose Level 158 H 143 H 70-105 MG/DL Lactic Acid Level 1.46 0.50-2.00 MMOL/L Calcium Level 9.4 9.5 8.5-10.1 MG/DL Corrected Calcium 9.8 10.2 H 8.5-10.1 MG/DL Total Bilirubin 1.2 H 0.5 0.1-1.0 MG/DL Aspartate Amino Transf (AST/SGOT) 24 28 5-34 U/L Alanine Aminotransferase (ALT/SGPT) 25 35 0-55 U/L Alkaline Phosphatase 91 90 40-136 U/L Pro-B-Type Natriuretic Peptide 4113.0 H <75.0 PG/ML Total Protein 7.6 6.5 6.4-8.2 GM/DL Albumin 3.5 3.1 L 3.2-4.5 GM/DL Blood Gas Puncture Site L RADIAL Blood Gas Patient Temperature 99.4 Arterial Blood pH 7.40 7.37-7.43 Arterial Blood Partial Pressure CO2 75 *H 35-45 MMHG Arterial Blood Partial Pressure O2 66 L 79-93 MMHG Arterial Blood HCO3 47 *H 23-27 MMOL/L Arterial Blood Total CO2 49.0 H 21.0-31.0 MMOL/L Arterial Blood Oxygen Saturation 93 L 94-100 % Arterial Blood Base Excess 17.9 H -2.5-2.5 MMOL/L Charles Test YES-POS Blood Gas Ventilator Setting NO Blood Gas Inspired Oxygen 3 L Urine Color DARK YELLOW Urine Clarity CLEAR Urine pH 6.0 5-9 Urine Specific [place] >=1.030 1.016-1.022 Urine Protein 2+ H NEGATIVE Urine Glucose (UA) NEGATIVE NEGATIVE Urine Ketones NEGATIVE NEGATIVE Urine Nitrite NEGATIVE NEGATIVE Urine Bilirubin NEGATIVE NEGATIVE Urine Urobilinogen 2.0 NORMAL MG/DL Urine Leukocyte Esterase NEGATIVE NEGATIVE Urine RBC (Auto) TRACE H NEGATIVE Urine RBC 2-5 H /HPF Urine WBC 2-5 /HPF Urine Squamous Epithelial Cells 0-2 /HPF Urine Crystals NONE /LPF Urine Bacteria NEGATIVE /HPF Urine Casts PRESENT /LPF Urine Hyaline Casts 10-25 H /LPF Urine Mucus LARGE H /LPF Urine Culture Indicated CULTURE PENDING Troponin I < 0.028 <0.028 NG/ML Test 6/28/19 09:49 Range/Units Blood Gas Puncture Site RR Blood Gas Patient Temperature 97.1 Arterial Blood pH 7.36 L 7.37-7.43 Arterial Blood Partial Pressure CO2 77 *H 35-45 MMHG Arterial Blood Partial Pressure O2 59 L 79-93 MMHG Arterial Blood HCO3 43 *H 23-27 MMOL/L Arterial Blood Total CO2 45.5 H 21.0-31.0 MMOL/L Arterial Blood Oxygen Saturation 92 L 94-100 % Arterial Blood Base Excess 16.6 H -2.5-2.5 MMOL/L Charles Test YES-POS Blood Gas Ventilator Setting NO Blood Gas Inspired Oxygen 4L Radiology CXR: Heart size is stable. Linear parenchymal density in the right suprahilar region appears stable and may represent scarring. Minimal patchy airspace disease in the right midlung is unchanged. Left lung is stable and appears to be essentially clear. The lungs are hyperinflated. There is no effusion. No pneumothorax is seen. Physical Exam-(CHC) Physical Exam Vital Signs VS - Last 72 Hours, by Label 04/08/19 04/08/19 04/08/19 04/08/19 13:42 14:00 14:11 16:55 Temp 99.4 98.1 Pulse 102 97 Resp 20 20 B/P (MAP) 163/105 (124) 93/75 (81) Pulse Ox 84 93 96 O2 Delivery Nasal Cannula Nasal Cannula Nasal Cannula Nasal Cannula O2 Flow Rate 2.00 3.00 3.00 3.00 FiO2 92 04/08/19 04/08/19 04/08/19 04/08/19 17:53 18:15 18:34 19:40 Temp 98.1 97.9 Pulse 97 99 106 Resp 20 20 B/P (MAP) 93/75 101/70 (80) Pulse Ox 96 96 74 O2 Delivery Nasal Cannula High Flow N/C High Flow N/C O2 Flow Rate 3.00 2.00 2.00 3.00 FiO2 92 04/08/19 04/08/19 04/08/19 04/08/19 19:42 20:00 20:00 20:00 Pulse 104 Pulse Ox 93 90 90 O2 Delivery High Flow N/C High Flow N/C High Flow N/C O2 Flow Rate 8.00 4.00 4.00 FiO2 36 04/08/19 04/09/19 04/09/19 04/09/19 20:25 00:55 01:00 01:18 Temp 97.3 Pulse 94 90 Resp 17 B/P (MAP) 121/76 (91) Pulse Ox 92 86 87 O2 Delivery High Flow N/C High Flow N/C High Flow N/C O2 Flow Rate 4.00 4.00 4.00 04/09/19 04/09/19 04/09/19 04/09/19 04:49 07:44 08:00 08:00 Temp 97.8 98.2 Pulse 96 102 102 Resp 19 20 B/P (MAP) 118/76 (90) 123/76 (92) Pulse Ox 98 88 O2 Delivery High Flow N/C High Flow N/C High Flow N/C O2 Flow Rate 4.00 4.00 4.00 04/09/19 04/09/19 09:52 12:00 Temp 98.0 Pulse 91 Resp 24 B/P (MAP) 111/72 (85) Pulse Ox 85 94 O2 Delivery Nasal Cannula Nasal Cannula O2 Flow Rate 4.00 4.00 Capillary Refill : NONELess Than 3 Seconds General Appearance: WD/WN, no apparent distress Respiratory: wheezing Cardiovascular: regular rate, rhythm, no murmur Gastrointestinal: normal bowel sounds, non tender, soft Extremities: No pedal edema Neurologic/Psychiatric: alert Skin: warm/dry Assessment/Plan Assessment/Plan Admission Status: Inpatient Order (span 2 midnights) Reason for Inpatient Admission: COPD exacerbation with possible new onset heart failure (1) COPD with exacerbation Status: Acute Assessment & Plan: Prednisone, duonebs. On home oxygen this morning. (2) Elevated d-dimer Status: Acute Assessment & Plan: Given hemoptysis and worsened hypoxia on admit, check CTA chest. (3) Elevated brain natriuretic peptide (BNP) level Status: Acute Assessment & Plan: Denies history of CHF, but is on lasix. Reports last echo a year or more ago, will check. (4) Hemoptysis Status: Acute Assessment & Plan: CT chest (5) Coronary artery disease Status: Chronic Assessment & Plan: History of stenting, no evidence of acute current disease. (6) COPD (chronic obstructive pulmonary disease) Status: Chronic (7) DVT prophylaxis Status: Acute Assessment & Plan: Enoxaparin Clinical Quality Measures DVT/VTE Risk/Contraindication: Risk Factor Score Per Nursin RFS Level Per Nursing on Admit: 4+=Very High FRANKO,RUSS N MD Apr 09, 2019 10:46
[2019-04-09] MEDS ORDERED: HOLD METFORMIN - RECEIVED CONTRAST 20 ML VIAL IV SCH (11:00)
[2019-04-09] MEDS ORDERED: NS 100 ML (IVPB) BAG IV ONE (11:00)
[2019-04-09] MEDS ORDERED: IOHEXOL 350 MG/ML 100 ML (OMNIPAQUE 350) VIAL IV ONE (11:00)
--- NOTE | 2019-04-09 11:00 | NUR ---
down for CT scan per W/C with portable o2 on
[2019-04-09] MEDS: ALPRAZolam 1 MG (XANAX) TAB PO PRN (11:04)
--- NOTE | 2019-04-09 11:44 | Diagnostic Imaging Report ---
PROCEDURE: CT angiography of the chest with contrast. TECHNIQUE: Multiple contiguous axial images were obtained through the chest after uneventful bolus administration of intravenous contrast. 2D reconstructed CTA MIP acquisitions were also performed. Auto Exposure Controls were utilized during the CT exam to meet ALARA standards for radiation dose reduction. INDICATION: Hemoptysis. COMPARISON: No prior exams for comparison. FINDINGS: There are no intraluminal pulmonary arterial filling defects. There are no findings of pulmonary arterial embolus. The thoracic aorta is atherosclerotic but patent and nonaneurysmal. There are small right and minute left pleural effusions. On the right, this measures 1.5 cm in depth. There are changes of centrilobular emphysema. There are nodular and somewhat curvilinear areas of irregular parenchymal and pleural opacity in the pulmonary apices bilaterally, very likely but inconclusively reflective of benign scarring. A similar finding in the right upper lobe anteromedially is present. There is some mild cylindrical bronchiectasis centrally with mildly ectatic airways showing thickening. No suspicious appearing mediastinal or hilar lymph nodes. No acute chest wall pathology. The upper abdomen reveals atherosclerotic aortic ectasia with no acute abdominal pathology visualized. IMPRESSION: 1. Negative for PE or acute aortic disease. 2. Severe COPD is present, right greater than left. Nonloculated pleural effusions. Mild bronchiectasis and thickening of the ectatic airways with likely areas of chronic pleural/parenchymal scarring in the pulmonary apices as well as in the right upper lobe anteromedially. Neoplastic nodularity is less likely but cannot be definitively excluded given the absence of prior exams. I would suggest a followup exam in 3-6 months which would not require contrast media. Dictated by: Dictated on workstation # [id number]
[2019-04-09] MEDS ORDERED: CLOP75TA28 PO (13:26)
[2019-04-09] MEDS ORDERED: ALPR0.5T7 PO (13:26)
[2019-04-09] MEDS ORDERED: ATOR40TA70 PO (13:26)
[2019-04-09] MEDS ORDERED: FLUT1BLS3 INH (13:26)
[2019-04-09] MEDS ORDERED: CYCL10TA9 PO (13:26)
[2019-04-09] MEDS ORDERED: CARV6.252 PO (13:26)
[2019-04-09] MEDS ORDERED: NITR0.4T42 SL (13:26)
[2019-04-09] MEDS ORDERED: ALBU2.5V4 NEB (13:26)
[2019-04-09] MEDS ORDERED: LISI10TA2 PO (13:26)
[2019-04-09] MEDS ORDERED: ASPI325T32 PO (13:26)
--- NOTE | 2019-04-09 13:29 | NUR ---
WENT OVER THE EXT MED HX WITH THE PATIENT AND HE VERIFIED HOW HE TAKES EACH MEDICATION. HE STATES AT THIS TIME HE IS NOT TAKING ANY OTC MEDICATIONS.
[2019-04-09] MEDS: ENOXAPARIN 40 MG/0.4 ML (LOVENOX) SYR SC SCH (15:59)
--- NOTE | 2019-04-09 18:30 | NUR ---
PATIENT C/O BEING SOB, PATIENT HAD TAKEN O2 OFF, O2 SAT 79 PERCENT ON ROOM AIR, O2 REAPPLIED AT NC 4 LITERS, O2 SAT INCREASED TO 92 PERCENT.
[2019-04-09] MEDS: ONDANSETRON 4 MG/2 ML (SDV) Z0FRAN IV PRN (18:41)
[2019-04-09] MEDS: ATORVASTATIN 40 MG (LIPITOR) TABLET PO SCH (20:03)
[2019-04-09] MEDS: CLOPIDOGREL 75 MG (PLAVIX) TABLET PO SCH (20:03)
--- NOTE | 2019-04-10 | NUR ---
PT C/O OF BACK PAIN 05/22. PT GIVEN FLEXERIL. PT CALLED THIS RN BACK TO ROOM 10MIN LATER AND STATES HIS PAIN IS NOW GOING DOWN HIS LEFT ARM. INFORMS THIS RN HE CAN NOT TAKE A DEEP BREATH IN AND PAIN IS NOT LIKE SPASMS HE HAS AT HOME. DR. ABDUL CALLED AT THIS TIME AND INFORMED OF PT PAIN AND PT GIVEN FLEXERIL 15MIN AGO. ORDERED STAT EKG, TROP, NITRO AND B/P IN BOTH ARMS.
--- NOTE | 2019-04-10 00:15 | NUR ---
DR. FARAH CALLED AND INFORM OF CONSULT FROM [facility]. INFORMED OF PT CARDIAC HISTORY. PT'S C/O PAIN IN BACK AND CHEST. PT UNABLE TO TAKE DEEP BREATH. ALSO IN FORMED OF PT EKG AND TROPONIN 0.073 AND UNRELIEVED PAIN WHEN GIVEN NITRO. DR. FARAH INFORMED PT DID HAVE SOME RELIEF WITH IV MORPHINE. DR. FARAH ORDERED TO GIVE 40MG OF IV LASIX. Addendum: 04/10/19 at 0219 by FRANCESCO FINK RN WRONG TIME: ACCURATE TIME 0115
[2019-04-10] MEDS: NITROGLYCERIN 0.4 MG SL TABS BTL 25'S SL PRN ×2 (00:18→00:30)
--- NOTE | 2019-04-10 00:18 | NUR ---
TIME LINE: 0018- FIRST NITRO GIVEN, B/P 125/80, PULSE 95. PAIN 8. 0030- PAIN NOT RELIEVED, 2ND NITRO GIVEN, B/P 115/70, PULSE 88, PAIN 05/22. 0034-B/P 112/70 PULSE 89, PAIN 05/22. 0039- B/P 107/60, PULSE 88, PAIN 8/. 0043- 111/60, PULSE 88, PAIN 8/10. PT REFUSED 3RD NITRO TAB.
[2019-04-10 00:45] VITALS: BP 135/91
--- NOTE | 2019-04-10 00:56 | NUR ---
DR. ABDUL CALLED AND INFORMED OF PT B/P IN LEFT ARM 126/87, IN RIGHT ARM 122/81, NO PAIN RELIEF WITH NITRO, TROP 0.073, EKG RESULTS. ORDER TO CONSULT DR. FARAH, STAT CHEST XRAY, AND 2MG OF IV MORPHINE.
[2019-04-10] MEDS ORDERED: morphine INJ 10 MG/ML 1ML (SYR OR VIAL) IVP STA (00:58)
[2019-04-10] MEDS ORDERED: morphine INJ 4 MG/ML 1 ML (VIAL/SYRINGE) ONE (00:59)
--- NOTE | 2019-04-10 01:11 | NUR ---
PT GIVEN IV MORPHINE 2MG. B/P 108/70 PULSE 93. PT STATES PAIN IS 6/10 AFTER, MORPHINE GIVEN.
[2019-04-10] MEDS: RT-ALBUTEROL/IPRATROPIUM 3 ML (DUONEB) VIAL INH SCH ×6 (01:15→22:03)
[2019-04-10] MEDS ORDERED: FUROSEMIDE 40 MG/4 ML INJ (LASIX) ONE (01:18)
[2019-04-10] MEDS ORDERED: FUROSEMIDE 40 MG/4 ML INJ (LASIX) IVP ONE (01:30)
--- NOTE | 2019-04-10 01:40 | NUR ---
PT STATES PAIN 5/10 BUT IS STILL HAVING SOME PAIN WHEN BREATHING IN. PT SITTING UP IN BED LAUGHING AND TALKING WITH FAMILY AT THIS TIME. WILL CONTINUE TO MONITOR.
[2019-04-10 03:14] VITALS: BP 121/60
[2019-04-10 05:08] LABS: MEAN PLATELET VOLUME 10.8 FL (7.4-10.4); RED CELL DISTRIBUTION WIDTH 14.2 % (10.0-14.5); WHITE BLOOD COUNT 17.5 10^3/uL (4.3-11.0)
[2019-04-10 05:23] LABS: BUN/CREATININE RATIO 25; CALCIUM 9.6 MG/DL (8.5-10.1); CARBON DIOXIDE 41 MMOL/L (21-32); CHLORIDE 86 MMOL/L (98-107); CREATININE SERUM 0.99 MG/DL (0.60-1.30); GFR ESTIMATED > 60; GLUCOSE 236 MG/DL (70-105); POTASSIUM 4.3 MMOL/L (3.6-5.0); SODIUM 138 MMOL/L (135-145)
[2019-04-10] MEDS: predniSONE 20 MG TAB PO SCH (06:01)
[2019-04-10] MEDS: CATHETER FLUSH 10 ML SYR IV SCH ×3 (06:02→20:16)
[2019-04-10] MEDS: ALPRAZolam 1 MG (XANAX) TAB PO PRN ×2 (06:04→20:43)
--- NOTE | 2019-04-10 07:14 | Diagnostic Imaging Report ---
INDICATION: Chest pain. COMPARISON: 04/09/2019. FINDINGS: Single view of the chest demonstrates cardiac enlargement with chronic interstitial changes. There is acute superimposed borderline interstitial pulmonary edema. Scarring and/or effusions are seen in both bases. There is no pneumothorax. Osseous structures are normal. IMPRESSION: Cardiac enlargement with chronic interstitial changes with likely superimposed acute borderline pulmonary edema. Dictated by: Dictated on workstation # [id number]
[2019-04-10 08:00] VITALS: BP 132/79
[2019-04-10] MEDS ORDERED: FUROSEMIDE 40 MG (LASIX) TAB PO SCH (09:00)
[2019-04-10] MEDS: CARVEDILOL 6.25 MG (COREG) TAB PO SCH ×2 (10:00→20:16)
[2019-04-10] MEDS: ASPIRIN 325 MG (5 GR) TABLET PO SCH (10:00)
[2019-04-10] MEDS ORDERED: NON-FORMULARY MEDICATION 1 EA EA (Fluticasone/Umeclidin/Vilanter (Trelegy Ellipta 100-62.5 INH SCH (10:00)
--- NOTE | 2019-04-10 10:00 | NUR ---
PATIENT INSTRUCTED TO HAVE FAMILY BRING HOME MEDICATION ELLIPTA DUE TO PHARMACY NOT HAVING IT
[2019-04-10 12:00] VITALS: BP 103/80
--- NOTE | 2019-04-10 14:17 | Consultation-Cardiology ---
HPI-Cardiology Cardiology Consultation Date of Consultation 04/10/19 Date of Admission Time Seen by Provider: 14:13 Indication: chest pain HPI 69 years old gentleman with history of COPD/emphysema, oxygen dependent. Started to have increasing dyspnea and hospitalized for acute exacerbation of COPD. Has been having some chest pain described as dull achiness in the retrosternal area and back usually with inspiration having difficulty taking a deep breath. Denied any palpitation. Denied any syncope or near syncopal episodes. Denied any claudications. Noted to have slight elevation in troponin level Home Medications & Allergies Allergies: Coded Allergies: propoxyphene (Unverified Adverse Reaction, Unknown, 04/08/19) Home Medication List Reviewed: Yes TDQ-Guaenb-Awmykk Hx Patient Social History Alcohol Use: Denies Use Recreational Drug Use: No Drug of Choice: Hx MJ Smoking Status: Former Smoker Type Used: Cigarettes Recent Foreign Travel: No Recent Infectious Disease Expo: No Recent Hopitalizations: No Immunizations Up To Date Tetanus Booster (TDap): Unknown Date of Pneumonia Vaccine: Apr 08, 2015 Past Medical History discussed below Family Medical History Family History: Alcoholism 19 FATHER G8 BROTHER G8 BROTHER Arthritis 19 FATHER 19 MOTHER Cardiovascular disease 19 MOTHER G8 BROTHER Hypertension G8 BROTHER Myocardial infarction 19 MOTHER G8 BROTHER Respiratory disorder 19 FATHER G8 BROTHER Tuberculosis 19 FATHER G8 BROTHER Review of Systems-General Review of Systems Constitutional: see HPI; No fever; malaise, weakness EENTM: see HPI; No nose congestion Respiratory: see HPI, cough, short of breath Cardiovascular: see HPI, chest pain, edema Gastrointestinal: no symptoms reported, see HPI; No abdominal pain; constipation (for about a year); No diarrhea; nausea; No vomiting Genitourinary: no symptoms reported, see HPI; No dysuria Musculoskeletal: see HPI, joint pain Skin: No pruritus, No rash Psychiatric/Neurological: See HPI, Anxiety Reviewed Test Results Reviewed Test Results Lab Laboratory Tests Test 04/10/19 00:25 04/10/19 04:45 Range/Units Troponin I 0.073 H <0.028 NG/ML White Blood Count 17.5 H 4.3-11.0 10^3/uL Red Blood Count 3.99 L 4.35-5.85 10^6/uL Hemoglobin 13.0 L 13.3-17.7 G/DL Hematocrit 41 40-54 % Mean Corpuscular Volume 103 H 80-99 FL Mean Corpuscular Hemoglobin 33 25-34 PG Mean Corpuscular Hemoglobin Concent 32 32-36 G/DL Red Cell Distribution Width 14.2 10.0-14.5 % Platelet Count 244 130-400 10^3/uL Mean Platelet Volume 10.8 H 7.4-10.4 FL Sodium Level 138 135-145 MMOL/L Potassium Level 4.3 3.6-5.0 MMOL/L Chloride Level 86 L 98-107 MMOL/L Carbon Dioxide Level 41 H 21-32 MMOL/L Anion Gap 11 5-14 MMOL/L Blood Urea Nitrogen 25 H 7-18 MG/DL Creatinine 0.99 0.60-1.30 MG/DL Estimat Glomerular Filtration Rate > 60 BUN/Creatinine Ratio 25 Glucose Level 236 H 70-105 MG/DL Calcium Level 9.6 8.5-10.1 MG/DL Radiology CXR: Heart size is stable. Linear parenchymal density in the right suprahilar region appears stable and may represent scarring. Minimal patchy airspace disease in the right midlung is unchanged. Left lung is stable and appears to be essentially clear. The lungs are hyperinflated. There is no effusion. No pneumothorax is seen. Physical Exam Physical Exam Vital Signs Vital Signs - First Documented 04/08/19 04/08/19 13:42 14:00 Temp 99.4 Pulse 102 Resp 20 B/P (MAP) 163/105 (124) Pulse Ox 84 O2 Delivery Nasal Cannula O2 Flow Rate 2.00 FiO2 92 Capillary Refill : NONELess Than 3 Seconds Height, Weight, BMI Height: 5'5.00" Weight: 123lbs. 3.0oz. [id number]; 19.0 BMI Method:Stated General Appearance: No Apparent Distress, WD/WN Eyes: Bilateral Eye Normal Inspection, Bilateral Eye PERRL, Bilateral Eye EOMI HEENT: PERRL/EOMI, TMs Normal, Normal ENT Inspection, Pharynx Normal, Moist Mucous Membranes Neck: Full Range of Motion, Normal Inspection, Non Tender, Supple, Carotid Bruit Respiratory: Chest Non Tender, Normal Breath Sounds, No Accessory Muscle Use, No Respiratory Distress, Crackles, Decreased Breath Sounds Cardiovascular: Regular Rate, Rhythm, No Edema, No Gallop, No JVD, No Murmur, Normal Peripheral Pulses Gastrointestinal: Normal Bowel Sounds, No Organomegaly, No Pulsatile Mass, Non Tender, Soft Back: Normal Inspection, No CVA Tenderness, No Vertebral Tenderness Extremity: Normal Capillary Refill, Normal Inspection, Normal Range of Motion, Non Tender, No Calf Tenderness, No Pedal Edema Neurologic/Psychiatric: Alert, Oriented x3, No Motor/Sensory Deficits, Normal Mood/Affect Skin: Normal Color, Warm/Dry Lymphatic: No Adenopathy A/P-Cardiology Admission Diagnosis Chest pain Coronary artery disease Congestive heart failure, cor pulmonale COPD Assessment/Plan Chest pain nonspecific etiology, atypical in presentation, EKG did not show any acute abnormality, Cardec enzymes are slightly abnormal due to the severe hypoxemia and COPD. Patient has history of coronary artery disease will need to have a stress test one COPD is stable Coronary artery disease, reporting history of 3 stents done in 2005, I did the stress test on him in 2010 showing no ischemia. Will need to have a stress test as an outpatient. COPD/acute exacerbation, history of emphysema, consult Dr. Ortega to maximize treatment Congestive heart failure, cor pulmonale with pulmonary hypertension, PA pressure is 50 mmHg, normal left ventricular size and systolic function, normal ejection fraction. Hypertension, controlled on current medication, continue to monitor Hyperlipidemia, monitor lipids Tobaccoism, has stopped smoking 2 months ago, encouraged to continue with smoking cessation Clinical Quality Measures DVT/VTE Risk/Contraindication: Risk Factor Score Per Nursin RFS Level Per Nursing on Admit: 4+=Very High SANGEETHA FARAH MD Apr 10, 2019 14:17
--- NOTE | 2019-04-10 15:15 | Progress Note (SOAP) ---
Subjective Subjective/Events-last exam Afebrile. Had acute upper back pain overnight that started to radiate to arm and chest. EKG without acute changes, BP equal in both arms and CXR with pulmonary edema. Troponin slightly elevated, Cardiology consulted and gave lasix. He is feeling better this am, but is requesting pain medication. Review of Systems Date Seen by Provider: Apr 10, 2019 Time Seen by Provider: 12:55 Focused Exam Lactate Level 04/08/19 14:00: Lactic Acid Level 1.46 Objective Exam Last Set of Vital Signs Vital Signs Date Time Temp Pulse Resp B/P (MAP) Pulse Ox O2 Delivery O2 Flow Rate FiO2 04/10/19 13:00 96 04/10/19 12:00 97.0 20 103/80 (88) 95 High Flow N/C 4.00 04/08/19 20:00 36 Capillary Refill : NONELess Than 3 Seconds I&O Intake and Output 04/10/19 00:00 Intake Total 1760 ml Output Total 1425 ml Balance 335 ml Intake Oral 1760 ml Output Urine Total 1425 ml # Voids 3 # Bowel Movements 1 General: Alert, No Acute Distress Lungs: Normal Air Movement, Other (wheezing, decreased air movement) Heart: Regular Rate, No Murmurs Neuro: Normal Speech Psych/Mental Status: Mental Status NL Results/Procedures Lab Laboratory Tests 04/10/19 00:25: Troponin I 0.073H 04/10/19 04:45: White Blood Count 17.5H, Red Blood Count 3.99L, Hemoglobin 13.0L, Hematocrit 41, Mean Corpuscular Volume 103H, Mean Corpuscular Hemoglobin 33, Mean Corpuscular Hemoglobin Concent 32, Red Cell Distribution Width 14.2, Platelet Count 244, Mean Platelet Volume 10.8H, Sodium Level 138, Potassium Level 4.3, Chloride Level 86L, Carbon Dioxide Level 41H, Anion Gap 11, Blood Urea Nitrogen 25H, Creatinine 0.99, Estimat Glomerular Filtration Rate > 60, BUN/Creatinine Ratio 25, Glucose Level 236H, Calcium Level 9.6 Microbiology 04/08/19 Blood Culture - Preliminary, Resulted No growth 04/08/19 Urine Culture - Final, Complete NO GROWTH Radiology CXR: Heart size is stable. Linear parenchymal density in the right suprahilar region appears stable and may represent scarring. Minimal patchy airspace disease in the right midlung is unchanged. Left lung is stable and appears to be essentially clear. The lungs are hyperinflated. There is no effusion. No pneumothorax is seen. Assessment/Plan Assessment/Plan (1) COPD with exacerbation Status: Acute Assessment & Plan: Prednisone, duonebs. On home oxygen this morning. 04/10 requiring higher amount of oxygen, having chest pain with deep breath. Change prednisone to IV solumedrol. (2) Elevated d-dimer Status: Acute Assessment & Plan: Given hemoptysis and worsened hypoxia on admit, check CTA chest. CTA chest with no PE, some nodularity of airways thought to be scarring but neoplasm not ruled out, recommend follow up in 3 months. (3) Elevated brain natriuretic peptide (BNP) level Status: Acute Assessment & Plan: Denies history of CHF, but is on lasix. Reports last echo a year or more ago, will check. See CHF dx. (4) Hemoptysis Status: Acute Assessment & Plan: CT chest (5) Coronary artery disease Status: Chronic Assessment & Plan: History of stenting, no evidence of acute current disease. (6) COPD (chronic obstructive pulmonary disease) Status: Chronic (7) Acute on chronic systolic (congestive) heart failure Status: Acute Assessment & Plan: EF 40-45% on echo 04/10, lasix started per Cardiology, appreciate recommendations. (8) Cor pulmonale (9) DVT prophylaxis Status: Acute Assessment & Plan: Enoxaparin Clinical Quality Measures DVT/VTE Risk/Contraindication: Risk Factor Score Per Nursin RFS Level Per Nursing on Admit: 4+=Very High RUSS ABDUL MD Apr 10, 2019 15:15
[2019-04-10] MEDS: ENOXAPARIN 40 MG/0.4 ML (LOVENOX) SYR SC SCH (15:22)
[2019-04-10 16:00] VITALS: BP 117/71
[2019-04-10] MEDS: methylPREDNISolone 125 MG (Solu-MEDROL) VIAL IVP SCH ×2 (18:17→23:48)
[2019-04-10] MEDS: ONDANSETRON 4 MG/2 ML (SDV) Z0FRAN IV PRN (18:22)
[2019-04-10 20:09] VITALS: BP 116/50
[2019-04-10] MEDS: ATORVASTATIN 40 MG (LIPITOR) TABLET PO SCH (20:16)
[2019-04-10] MEDS: CLOPIDOGREL 75 MG (PLAVIX) TABLET PO SCH (20:16)
[2019-04-11 00:15] VITALS: BP 120/80
--- NOTE | 2019-04-11 00:40 | NUR ---
PT RESTING WITH EYES CLOSED IN BED COMFORTABLY. OXYGEN SATURATION CHECK AT THIS TIME 93 PERCENT ON 5 LITER OF O2 NC. PT HAS NO COMPLAINTS AT THIS TIME.
--- NOTE | 2019-04-11 01:43 | NUR ---
TIME LINE: 0143- ORNAMENTER CALL THIS RN STATED PT HR IN 30'S. THIS RN ENTERED ROOM PT ACROSS BED WITH OXYGEN OFF, NON RESPONSIVE, DUSKY SKIN COLOR. ALEJANDRA ALFARO CALLED CPR INITIATED BY THIS RN. 0145- DR. SARMIENTO IN ROOM. CPR STILL IN PROGRESS. 0147- RHYTHM CHECK. PT IN PEA. 0148- 1MG OF EPI ADMINISTERED. CPR CONTINUED. 0149- 1MG OF ATROPINE ADMINISTERED. RHYTHM CHECK. PT STILL IN PEA. 0150- 1MG OF EPI ADMINISTERED. CPR CONTINUED. 0151- 1MG OF ATROPINE ADMINISTERED. RHYTHM CHECK. PT STILL IN PEA. 0155- PT INTUBATED 7.5. IV STARTED IN LEFT AC 20G. 1MG OF EPI ADMINISTERED. 1AMP OF BICARB ADMINISTERED. GLUCOSE 207. CPR STILL IN PROGRESS. 0155- THIS RN CALLED DR. ABDUL AND INFORMED OF ALEJANDRA ALFARO. ON WAY TO HOSPITAL. 0156- THIS RN CALLED ASHA PT GIRLFRIEND AND INFORMED OF PT DECLINE IN CONDITION AND NEED TO COME TO HOSPITAL. 0156- 1MG OF ATROPINE ADMINISTERED. 0157- RHYTHM CHECK. PT STILL IN PEA. 0159- 1MG OF EPI ADMINISTERED. RHYTHM CHECK. PT STILL IN PEA. CPR CONTINUED. 0201- 1MG OF EPI ADMINISTERED. PULSE CHECK. CPR CONTINUED. 0202- 1 AMP OF BICARB. 0204- RHYTHM CHECK. PT STILL IN PEA. 0204- CODE BLUE DISCONTINUED. TIME OF 0204. 0205- DR. ABDUL ON FLOOR AND INFORMED OF TOD. 0230- PT FAMILY ON FLOOR AT THIS TIME. DR. ABDUL INFORMED FAMILY OF EVENTS THAT LEAD UP TO THE CODE BLUE AND ITS PROCESS. PT FAMILY DENIES ANY QUESTIONS OR CONCERNS. REMOVED ALL MEDICAL LINES.
[2019-04-11] MEDS ORDERED: ATROPINE INJECTION 1 MG/10 ML SYR (ABBOTT) INJ ONE (02:03)
[2019-04-11] MEDS ORDERED: SODIUM BICARB 8.4% 50 MEQ/50 ML (ABBOTT) SYR INJ ONE (02:03)
[2019-04-11] MEDS ORDERED: EPINEPHrine 0.1 MG/ML 10 ML (HOSPIRA) SYR IJ ONE (02:03)
[2019-04-11] MEDS ORDERED: FUROSEMIDE 40 MG/4 ML INJ (LASIX) IVP SCH (09:00)
--- NOTE | 2019-04-11 15:00 | Discharge Summary ---
Discharge Summary Date of Admission Apr 08, 2019 at 15:00 Date of Discharge Apr 11, 2019 at 02:04 Discharge Date: Apr 11, 2019 Consults/Procedures Consulations Cardiology/Dr. Grimes Pulmonology/Dr. Ortega Comfort Measures/ Cardiopulmonary Arrest: Cardiorespiratory Arrest Date of : Apr 11, 2019 Time of : 02:04 Pt noted by telemetry to have heart rate in the 30s at 0144, nurse immediately in to room and found him dusky with supplemental oxygen off and started CPR and called tiffany zambrano. See nursing notes/code blue documentation. Code run by Dr. Mariee. No shockable rhythm or return of spontaneous circulation after 20 minutes of appropriate ACLS treatment, Dr. Mariee called time of at 0204. I arrived at 0205 and informed family of events after their arrival, they denied further questions. Discharge Diagnosis Cardiorespiratory arrest secondary to severe COPD with exacerbation in combination with acute on chronic systolic heart failure and cor pulmonale. (1) Acute on chronic systolic (congestive) heart failure Status: Acute (2) Cor pulmonale (3) Elevated d-dimer Status: Acute (4) Elevated brain natriuretic peptide (BNP) level Status: Acute (5) Hemoptysis Status: Acute (6) Coronary artery disease Status: Chronic (7) COPD (chronic obstructive pulmonary disease) Status: Chronic Copy Copies To 1: RENEA DUNCAN MD, BETHANY N MD Apr 11, 2019 15:00
--- NOTE | 2019-04-11 18:07 | ED CPR ---
HPI-CPR General Chief Complaint: Respiratory Problems Stated Complaint: CHF EXACERBATION; COPD EXACERBATION Nursing Triage Note: Pt reports SOA and was at a pulmonary rehab appt and the O2 sat was considered too low at 87%. Pt is chronic O2 dependent of 3 mo reporting emphysema dx. Pt has suspicion of lung CA he stated as his PCP Dr Duncan was starting a work-up. Sepsis Screen: No Definite Risk History of Present Illness Date Seen by Provider: Apr 11, 2019 Time Seen by Provider: 01:43 Initial Comments CALLED TO FLOOR FROM ER FOR CODE BLUE PT WITH COPD AND CHF, CHRONIC HYPOXIA AND HYPERCAPNIA PT WAS NOTED TO HAVE SEVERE BRADYCARDIA ON TELEMETRY, AND RN FOUND PT TO BE IN FULL ARREST, WITH ASYSTOLE ON MONITOR BY THE TIME SHE ENTERED ROOM, AND CPR/ACLS PROTOCOL WAS IMMEDIATELY INITIATED PT WAS GIVEN A TOTAL OF EPINEPHRINE X 5, ATROPINE X 3, BICARB X 1--ALL WITHOUT SUCCESS PT INTUBATED BY RT, WITH EQUAL BREATH SOUNDS WITH BAGGING, AND GOOD COLOR CHANGE ON COLORIMETER. PT REMAINED PULSELESS AND APNEIC THROUGHOUT RESUSCITATION EFFORTS. CODE WAS CALLED AND PT PRONOUNCED AT [address]204 DR. ABDUL ARRIVED AT 0205, AND AWAITING FOR FAMILY ARRIVAL AT THIS TIME. Allergies and Home Medications Allergies Coded Allergies: propoxyphene (Unverified Adverse Reaction, Unknown, 04/08/19) Home Medications Albuterol Sulfate 2.5 Mg/3 Ml Vial.neb, 2.5 MG NEB Q6H PRN for SHORTNESS OF BREATH, (Reported) Alprazolam 0.5 Mg Tablet, 0.5 MG PO TID PRN for ANXIETY, (Reported) Aspirin 325 Mg Tablet.dr, 325 MG PO 729, (Reported) Atorvastatin Calcium 40 Mg Tablet, 40 MG PO 1929, (Reported) Carvedilol 6.25 Mg Tablet, 6.25 MG PO 30,1929, (Reported) Clopidogrel Bisulfate 75 Mg Tablet, 75 MG PO 1929, (Reported) Cyclobenzaprine HCl 10 Mg Tablet, 10 MG PO HS, (Reported) Fluticasone/Umeclidin/Vilanter 1 Each Blst.w.dev, 1 PUFF INH 1000, (Reported) Lisinopril 10 Mg Tablet, 10 MG PO DAILY PRN for BLOOD PRESSURE, (Reported) Nitroglycerin 0.4 Mg Tab.subl, 0.4 MG SL UD PRN for CHEST PAIN, (Reported) Patient Home Medication List Home Medication List Reviewed: No Review of Systems Review of Systems Constitutional: other (PT UNRESPONSIVE) Respiratory: See HPI Cardiovascular: See HPI Past Pzkrwfq-Bjkers-Suaocx Hx Patient Social History Alcohol Use: Denies Use Recreational Drug Use: No Drug of Choice: Hx MJ Smoking Status: Former Smoker Type Used: Cigarettes Former Smoker, Quit: Jan 25, 2019 Recent Foreign Travel: No Contact w/Someone Who Travel: No Recent Infectious Disease Expo: No Recent Hopitalizations: No Physical Abuse: No Sexual Abuse: No Mistreated: No Fear: No Immunizations Up To Date Tetanus Booster (TDap): Unknown Date of Pneumonia Vaccine: Apr 08, 2015 Seasonal Allergies Seasonal Allergies: No Past Medical History Surgeries: Yes (H/O PCTA, Bronchoscopy with cell washing, Back surgery, Carotid stent) Respiratory: Yes (Oxygen dependent since ?January 2019, H/O TB, H/O tobacco use 48+ yrs) Tuberculosis, Emphysema Cardiac: Yes (CHF, H/O PCTA) Angina, Chronic Edema/Swelling, Coronary Artery Disease, High Cholesterol, P eripheral Vascular Neurological: Yes Neuropathy Genitourinary: No Gastrointestinal: Yes (H/O Hep C) Gastroesophageal Reflux, Hepatitis Musculoskeletal: Yes (H/O Spinal stenosis, rotator cuff tendonitis, left bicep tendonitis) Chronic Back Pain Endocrine: No HEENT: No Cancer: No Psychosocial: Yes Anxiety Integumentary: Yes (Seborrheic dermatitis) Blood Disorders: No Family Medical History Alcoholism 19 FATHER G8 BROTHER G8 BROTHER Arthritis 19 FATHER 19 MOTHER Cardiovascular disease 19 MOTHER G8 BROTHER Hypertension G8 BROTHER Myocardial infarction 19 MOTHER G8 BROTHER Respiratory disorder 19 FATHER G8 BROTHER Tuberculosis 19 FATHER G8 BROTHER Physical Exam Vital Signs Vital Signs - First Documented 04/08/19 04/08/19 13:42 14:00 Temp 99.4 Pulse 102 Resp 20 B/P (MAP) 163/105 (124) Pulse Ox 84 O2 Delivery Nasal Cannula O2 Flow Rate 2.00 FiO2 92 Capillary Refill : NONELess Than 3 Seconds Height, Weight, BMI Height: 5'5.00" Weight: 123lbs. 3.0oz. 55.551556fw; 19.0 BMI Method:Stated General Appearance: Thin, Other (PT UNRESPONSIVE, PULSELESS AND APNEIC--CPR/ACLS PROTOCOL IN PROGRESS, PT BEING BAGGED BY RT. ) Respiratory: Other (NO RESPRIATORY EFFORT) Cardiovascular: Other (PULSELESS AND NO HEART SOUNDS AUSCULTATED) Neurologic/Psychiatric: Other (UNRESPONSIVE) Skin: Pallor Focused Exam Lactate Level 04/08/19 14:00: Lactic Acid Level 1.46 Lactic Acid Level Laboratory Tests Test 04/08/19 14:00 Lactic Acid Level 1.46 MMOL/L (0.50-2.00) Procedures/Interventions Tube Size: 7.50 Progress/Results/Core Measures Results/Orders Lab Results Laboratory Tests Test 04/08/19 14:00 04/08/19 14:02 Range/Units White Blood Count 11.2 H 4.3-11.0 10^3/uL Red Blood Count 4.59 4.35-5.85 10^6/uL Hemoglobin 14.8 13.3-17.7 G/DL Hematocrit 48 40-54 % Mean Corpuscular Volume 104 H 80-99 FL Mean Corpuscular Hemoglobin 32 25-34 PG Mean Corpuscular Hemoglobin Concent 31 L 32-36 G/DL Red Cell Distribution Width 14.6 H 10.0-14.5 % Platelet Count 234 130-400 10^3/uL Mean Platelet Volume 10.9 H 7.4-10.4 FL Neutrophils (%) (Auto) 76 H 42-75 % Lymphocytes (%) (Auto) 12 12-44 % Monocytes (%) (Auto) 10 0-12 % Eosinophils (%) (Auto) 1 0-10 % Basophils (%) (Auto) 1 0-10 % Neutrophils # (Auto) 8.5 H 1.8-7.8 X 10^3 Lymphocytes # (Auto) 1.4 1.0-4.0 X 10^3 Monocytes # (Auto) 1.1 H 0.0-1.0 X 10^3 Eosinophils # (Auto) 0.1 0.0-0.3 10^3/uL Basophils # (Auto) 0.1 0.0-0.1 10^3/uL Prothrombin Time 13.7 12.2-14.7 SEC INR Comment 1.0 0.8-1.4 Activated Partial Thromboplast Time 27 24-35 SEC D-Dimer 1.80 H 0.00-0.49 UG/ML Sodium Level 141 135-145 MMOL/L Potassium Level 4.6 3.6-5.0 MMOL/L Chloride Level 94 L 98-107 MMOL/L Carbon Dioxide Level 42 H 21-32 MMOL/L Anion Gap 5 5-14 MMOL/L Blood Urea Nitrogen 17 7-18 MG/DL Creatinine 0.69 0.60-1.30 MG/DL Estimat Glomerular Filtration Rate > 60 BUN/Creatinine Ratio 25 Glucose Level 158 H 70-105 MG/DL Lactic Acid Level 1.46 0.50-2.00 MMOL/L Calcium Level 9.4 8.5-10.1 MG/DL Corrected Calcium 9.8 8.5-10.1 MG/DL Total Bilirubin 1.2 H 0.1-1.0 MG/DL Aspartate Amino Transf (AST/SGOT) 24 5-34 U/L Alanine Aminotransferase (ALT/SGPT) 25 0-55 U/L Alkaline Phosphatase 91 40-136 U/L Pro-B-Type Natriuretic Peptide 4113.0 H <75.0 PG/ML Total Protein 7.6 6.4-8.2 GM/DL Albumin 3.5 3.2-4.5 GM/DL Blood Gas Puncture Site L RADIAL Blood Gas Patient Temperature 99.4 Arterial Blood pH 7.40 7.37-7.43 Arterial Blood Partial Pressure CO2 75 *H 35-45 MMHG Arterial Blood Partial Pressure O2 66 L 79-93 MMHG Arterial Blood HCO3 47 *H 23-27 MMOL/L Arterial Blood Total CO2 49.0 H 21.0-31.0 MMOL/L Arterial Blood Oxygen Saturation 93 L 94-100 % Arterial Blood Base Excess 17.9 H -2.5-2.5 MMOL/L Charles Test YES-POS Blood Gas Ventilator Setting NO Blood Gas Inspired Oxygen 3 L Micro Results Microbiology 04/08/19 Blood Culture - Preliminary, Resulted No growth 04/08/19 Blood Culture - Preliminary, Resulted No growth Vital Signs/I&O 04/08/19 04/08/19 04/08/19 13:42 14:00 14:11 Temp 99.4 Pulse 102 Resp 20 B/P (MAP) 163/105 (124) Pulse Ox 84 93 O2 Delivery Nasal Cannula Nasal Cannula Nasal Cannula O2 Flow Rate 2.00 3.00 3.00 FiO2 92 Blood Pressure Mean: 93 Diagnostic Imaging Diagonstic Imaging: Xray Plain Films/CT/US/NM/MRI: chest (2 view) Time of Consult: 15:45 Reviewed: Reviewed by Me Critical Care Note Critical Care Start Time: 01:43 Stop Time: 02:04 Date of : Apr 11, 2019 Time of : 02:04 Departure Impression Primary Impression: Cardiopulmonary arrest Additional Impressions: Acute and chronic respiratory failure CHF (congestive heart failure) Disposition: 20 Condition: Departure-Patient Inst. Referrals: RENEA DUNCAN MD (PCP) Primary Care Physician MARK SARMIENTO DO Apr 11, 2019 18:07
== END 2019-04-11 02:04 | disposition expired | DRG 190 ==
LOC: EDUNIT# 13:29 → ER FS 13:31 → 4TH 15:00
PROVIDERS: ADMIT Family Medicine; ATTEND Family Medicine
PROC: 0BH17EZ Insertion of Endotracheal Airway into Trachea, Via Natural or Artificial Opening (ICD-10-PCS; principal; 2019-04-11)
DX: J43.9 Emphysema, unspecified (principal); I11.0 Hypertensive heart disease with heart failure; I50.23 Acute on chronic systolic (congestive) heart failure; Z99.81 Dependence on supplemental oxygen; I27.29 Other secondary pulmonary hypertension; R04.2 Hemoptysis; I46.9 Cardiac arrest, cause unspecified; I73.9 Peripheral vascular disease, unspecified; I25.10 Atherosclerotic heart disease of native coronary artery without angina pectoris; E78.5 Hyperlipidemia, unspecified; Z95.5 Presence of coronary angioplasty implant and graft; Z87.891 Personal history of nicotine dependence
CPT/HCPCS: 36415; 36600; 71045; 71046; 71275; 80048; 80053; 81000; 82805; 82962; 83605; 83880; 84484; 85025; 85027; 85379; 85610; 85730; 87040; 87088; 93005; 93306; 94640; 94760; 96361; 96365; 96375